=== PATIENT | female | born 1955 | race Caucasian/White ===

== ENCOUNTER → 2021-08-01 14:42 | Outpatient (BNVA) | payer OTHER, SELFPAY | PROVIDERS: PCP Internal Medicine; Visit Provider Hospitalist ==

== ENCOUNTER 2021-08-22 07:45 | Outpatient (REF) | payer OTHER, SELFPAY ==
--- NOTE | 2021-08-22 11:43 | PFT_ITS ---
INDICATION: Status post COVID. SPIROMETRY: FEV1 to FVC of 83% with an FEV1 of 1.98 L, which is 85% predicted, and FVC of 2.37 L, which is 78% predicted. No significant response to bronchodilators noted. Maximum voluntary ventilation initially 70% prior to bronchodilators and then improved to 98% predicted after bronchodilation. LUNG VOLUMES: Total lung capacity 75% predicted with a diffusion capacity of 74% predicted. COMPARISONS: None. INTERPRETATION: No obstructive ventilatory defect. No significant response to bronchodilators noted. There was significant improvement of the maximum voluntary ventilation after bronchodilators were administered. The patient does have a mild restrictive ventilatory defect consistent with mild restrictive lung disease secondary to COVID and also has a mild diffusion impairment. Clinical correlation warranted. MD MARK Underwood/ASHLEY / [phone]
== END 2021-08-22 07:46 | disposition home or self-care (01) ==
LOC: HO.RESP 07:45
PROVIDERS: PCP Internal Medicine; Visit Provider Hospitalist
DX: U09.9 Post COVID-19 condition, unspecified (principal)
CPT/HCPCS: 94060; 94727; 94729

== ENCOUNTER 2021-09-19 14:09 | Outpatient (REF) | payer OTHER, SELFPAY ==
--- NOTE | ~2021-09-19 | XR_ITS ---
EXAMINATION: XR CHEST CLINICAL INFORMATION: Covid 19 COMPARISON: None TECHNIQUE: 2 views of the chest were obtained. FINDINGS: No significant abnormality is noted involving the heart, lungs, mediastinum, bony thorax or soft tissues. XR/XR chest 2V IMPRESSION: Normal chest x-ray.
== END 2021-09-19 14:10 | disposition home or self-care (01) ==
LOC: HO.XRAY 14:09
PROVIDERS: PCP Internal Medicine; Visit Provider Hospitalist
DX: U07.1 COVID-19 (principal)
CPT/HCPCS: 71046

== ENCOUNTER → 2021-10-07 13:58 | Outpatient (BNVA) | payer OTHER, SELFPAY | PROVIDERS: PCP Internal Medicine; Visit Provider Hospitalist | DX: U09.9 Post COVID-19 condition, unspecified (principal); R06.00 Dyspnea, unspecified; R91.1 Solitary pulmonary nodule; I77.819 Aortic ectasia, unspecified site; G47.00 Insomnia, unspecified | CPT/HCPCS: 99212 ==

== ENCOUNTER → 2021-11-25 14:08 | Outpatient (BNVA) | payer OTHER, SELFPAY | PROVIDERS: PCP Internal Medicine; Visit Provider Hospitalist | DX: R06.00 Dyspnea, unspecified (principal); U09.9 Post COVID-19 condition, unspecified; G47.00 Insomnia, unspecified; R91.1 Solitary pulmonary nodule; R00.0 Tachycardia, unspecified; I77.819 Aortic ectasia, unspecified site | CPT/HCPCS: 94010; 94618; 99212 ==

== ENCOUNTER → 2022-02-07 12:55 | Outpatient (BNVA) | payer OTHER, SELFPAY | PROVIDERS: PCP Internal Medicine; Visit Provider Hospitalist | DX: R06.00 Dyspnea, unspecified (principal); U09.9 Post COVID-19 condition, unspecified; G47.00 Insomnia, unspecified; R91.1 Solitary pulmonary nodule; R00.0 Tachycardia, unspecified | CPT/HCPCS: 99212 ==

== ENCOUNTER → 2022-02-28 13:10 | Outpatient (BNVA) | payer OTHER, SELFPAY | PROVIDERS: PCP Internal Medicine; Visit Provider Hospitalist | DX: U09.9 Post COVID-19 condition, unspecified (principal); R06.00 Dyspnea, unspecified; G47.00 Insomnia, unspecified; R91.1 Solitary pulmonary nodule; R00.0 Tachycardia, unspecified; G47.33 Obstructive sleep apnea (adult) (pediatric) | CPT/HCPCS: 99212 ==

== ENCOUNTER → 2022-04-24 14:08 | Outpatient (REF) | payer OTHER, SELFPAY | LOC: HO.SL 14:08 | PROVIDERS: Visit Provider Hospitalist | DX: G47.33 Obstructive sleep apnea (adult) (pediatric) (principal) | CPT/HCPCS: 95806 ==

== ENCOUNTER → 2022-04-29 14:17 | Outpatient (BNVA) | payer OTHER, SELFPAY | PROVIDERS: PCP Internal Medicine; Visit Provider Hospitalist | DX: U09.9 Post COVID-19 condition, unspecified (principal); R06.00 Dyspnea, unspecified; R91.1 Solitary pulmonary nodule | CPT/HCPCS: 99212 ==

== ENCOUNTER → 2022-05-27 11:09 | Outpatient (BNVA) | payer OTHER, SELFPAY | PROVIDERS: PCP Internal Medicine; Visit Provider Hospitalist | DX: R06.00 Dyspnea, unspecified (principal); U09.9 Post COVID-19 condition, unspecified; R91.1 Solitary pulmonary nodule; R00.0 Tachycardia, unspecified; G47.33 Obstructive sleep apnea (adult) (pediatric); G47.00 Insomnia, unspecified | CPT/HCPCS: 99212 ==

== ENCOUNTER → 2022-08-28 14:06 | Outpatient (BNVA) | payer OTHER, SELFPAY | PROVIDERS: PCP Internal Medicine; Visit Provider Hospitalist | DX: J44.9 Chronic obstructive pulmonary disease, unspecified (principal); J40 Bronchitis, not specified as acute or chronic; R06.00 Dyspnea, unspecified; R91.1 Solitary pulmonary nodule; G47.33 Obstructive sleep apnea (adult) (pediatric); U09.9 Post COVID-19 condition, unspecified | CPT/HCPCS: 99212 ==

== ENCOUNTER 2022-09-10 11:01 | Outpatient (REF) | payer OTHER, SELFPAY ==
--- NOTE | ~2022-09-10 | XR_ITS ---
EXAMINATION: XR CHEST CLINICAL INFORMATION: Reason for Exam J40 - Bronchitis, not specified as acute or chronic COMPARISON: Chest radiograph 09/19/2021 TECHNIQUE: 2 views of the chest FINDINGS: Clear lungs. No pneumothorax or pleural effusion. Unchanged cardiomediastinal silhouette. XR/XR chest 2V IMPRESSION: * Clear lungs.
== END 2022-09-10 11:02 | disposition home or self-care (01) ==
LOC: HO.XRAY 11:01
PROVIDERS: PCP Internal Medicine; Visit Provider Hospitalist
DX: J40 Bronchitis, not specified as acute or chronic (principal)
CPT/HCPCS: 71046

== ENCOUNTER → 2023-01-05 15:42 | Outpatient (BNVA) | payer OTHER, SELFPAY | PROVIDERS: PCP Internal Medicine; Visit Provider Hospitalist ==

== ENCOUNTER 2023-01-05 15:45 | Outpatient (AMB) | payer OTHER, SELFPAY ==
--- NOTE | 2023-01-05 15:43 | MHC.OFFVIS ---
Intake Vital Signs 01/05/23 15:45 Height 5 ft 3 in Weight 159 lb 13.362 oz BMI 28.3 BP 128/70 Blood Pressure Location Lt brachial Position Sitting Pulse 79 Pulse Source Pulse Oximeter Pulse Oximetry (%) 97 Oxygen Delivery Method Room Air Intake Visit Reasons: dyspnea Vp Platforms Required: No Allergies No Known Allergies Allergy (Verified 01/05/23 15:47) HPI HPI Comments History of Present Illness Details The patient is a 67-year-old woman who apparently was in usual state health until the end of May when she started developing worsening respiratory symptoms. She did have any fevers or chills. She did test herself for COVID-19 and her test was positive. She was actually surprised by the findings. She was not offered infusion therapy or oral antiviral therapy based on the fact that she had not gotten her booster. However she opted on not getting the therapy because she that she had been sick her for longer than the 10 days. she was initially quarantine at home. However she was not making any progress she was actually getting worse with worsening shortness of breath. Therefore, she was then prescribed a course of prednisone. She was not making any significant improvement so therefore around 3 weeks after her initial diagnosis she underwent a CTA that I personally reviewed a [facility]. 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 However, no evidence of any aneurysmal changes. The patient did mention that she is not adherent to her blood pressure medication. Her blood pressure does run high. I did encourage her to taking medication as prescribed to decrease the risk of further dilation of the ascending aorta. In addition to that there was a hazy pulmonary nodule in the left lung in addition to other more ill-defined nodular densities in the upper lung zones. Also, appears to have some degree of mosaic pattern suggesting the possibility of small airways disease. After the CT scan she had a 2nd course of prednisone and also was given a short-acting beta agonist. She did not feel that the short-acting beta agonist was helpful. During the office visit we did go for brief walking oximetry and she actually maintain a pulse ox of 99% with a heart rate in the 80s to 90s. The patient's is and score is elevated 6/10. The patient is concerned about her post COVID symptoms. I reassured her that symptoms will continue to get better although she will require some patients as she does do that. In the meantime we talked about the importance of getting adequate sleep. The patient does not sleep well. She wakes up many times at nighttime. In addition to that we talked about the importance of pulmonary rehabilitation. 11/26/2021 the patient is here for a pulmonary follow-up visit. The patient continues to have significant dyspnea on exertion fatigue. Since participating in pulmonary rehab she has felt slightly better. She is not having to take as many breaks when she is doing any of her activities of daily living. But, she still has a hard time going up a flight of stairs which she needs to take a break and also has a hard time with even her daily activities. She has been using the Trelegy inhaler and that has been helpful. Today she did have a spirometry demonstrating no obstructive disease. During her 6 minute walk test the patient was ambulated and she maintain a pulse ox of 98% which was reassuring. However, once the heart rate increased to 105 beats per minute she became very dyspneic with if she had to stop with dyspnea score of 6/10. The patient is scheduled to follow-up with rn discharge with going to further address her tachycardia and also assess her for heart disease. This point the patient continues to be very symptomatic due to her post COVID syndrome in still not able to return to work. The patient also had a CT scan of the chest sometime in the beginning of the year 2021 demonstrating pulmonary nodules. She will have a repeat CT scan in June 2022. 08/28/2022 The patient is here for a pulmonary follow up visit. Complaining of a worsening cough and chest tightness. Has been sick for several weeks. Took 5 days of prednisone with minimal response. Already starting to feel better. Has wheezing on examonation. Provided 1 duoneb treatment with improvement. Although, tremolous. Will try xopenex for the home. We will provide her with anebulizer. In the meantime, she also remembers having scant blood in the sputum. We will also treat her for bronchitis. If she is no better after abx course, she should call or further evaluation. 01/05/2023 the patient is here for pulmonary follow-up visit. Overall her breathing is better. She continues use the Trelegy inhaler. The nebulizer has been helpful as well. She is no longer using the individuals she does not find that is helpful and she does not needed at this time. Recently she had an episode of GI bleed and currently being evaluated by GI. She is scheduled to undergo endoscopy and also colonoscopy Very soon. Her hemoglobin has been stable as per the patient. We did review her imaging studies. The patient is scheduled to review have a repeat CT scan in June 2023. Will follow the patient after that study. 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 Pulmonary nodule Social History (Updated 08/01/21 @ 14:54 by JOHN Renee) Household Members: Spouse and Family Patient Tobacco Use Status: Never used Tobacco Second Hand Smoke Exposure: No Review of Systems Const Reports difficulty sleeping, Reports fatigue, Denies fever(s) and Denies frequent falls Eyes Denies change in vision ENT Denies change in voice Card Denies palpitations and Reports dyspnea on exertion Resp Denies change in phlegm color, Denies chest congestion, Reports cough, Denies hemoptysis, Denies pain on inspiration, Denies pain with cough and Reports dyspnea on exertion GI Reports as per HPI and Reports melena Reports no additional complaints Musc Reports no additional complaints Skin/Breast Denies rash Neuro Denies frequent falls and Denies paresthesias Endo Reports fatigue and Denies palpitations Physical Exam Vital Signs: Last Vital Signs Pulse 79 01/05/23 15:45 BP 128/70 01/05/23 15:45 Pulse Ox 97 01/05/23 15:45 Oxygen Delivery Method Room Air 01/05/23 15:45 BMI result Body Mass Index 28.3 Const General: alert Neck Neck: Yes normal visual inspection, Yes full ROM and Yes no lymphadenopathy Chest Chest palpation & inspection: normal inspection of the chest Resp Auscultation: clear to auscultation bilaterally and no wheezes Cardio Rate: tachycardic Rhythm: regular rhythm Heart sounds: S1 normal heart sound present and S2 normal heart sound present GI Palpation (GI): Soft to palpation and nontender Auscultation: normal bowel sounds Skin General skin exam: rashes and/or lesions noted Assessment & Plan Assessment & Plan (1) Dyspnea: Code(s): R06.00 - Dyspnea, unspecified (2) Pulmonary nodule: Code(s): R91.1 - Solitary pulmonary nodule (3) JAMILAH (obstructive sleep apnea): Code(s): G47.33 - Obstructive sleep apnea (adult) (pediatric) (4) COPD (chronic obstructive pulmonary disease): Code(s): J44.9 - Chronic obstructive pulmonary disease, unspecified Plan continue Trelegy continue nebulizer Xopenex as needed Aerobika for CPT continue with pulmonary exercises to continue building of endurance positional therapy to treat her mild sleep apnea stopped Nuvigil Repeat CT chest 06/2023 F/U Jun/Jul 2023 Coding Level of Care Code Est Pt Level 4 (91934) Diagnoses Dyspnea R06.00 Pulmonary nodule R91.1 JAMILAH (obstructive sleep apnea) G47.33 COPD (chronic obstructive pulmonary disease) J44.9 Time Spent (min) 19
[2023-01-05 15:45] VITALS: BP 128/70; PULSE 79; O2SAT 97; BMI 28.3
== END 2023-01-05 15:58 | disposition home or self-care (01) ==
PROVIDERS: PCP Internal Medicine; Visit Provider Hospitalist
DX: R06.00 Dyspnea, unspecified (principal); R91.1 Solitary pulmonary nodule; G47.33 Obstructive sleep apnea (adult) (pediatric); J44.9 Chronic obstructive pulmonary disease, unspecified
CPT/HCPCS: 99214

== ENCOUNTER 2024-01-28 15:00 | Outpatient (AMB) | payer OTHER, SELFPAY ==
--- NOTE | 2024-01-28 15:02 | MHC.OFFVIS ---
Vital Signs 01/28/24 15:03 Height 5 ft 3 in Weight 164 lb BMI 29.0 Pulse 85 Pulse Source Pulse Oximeter Pulse Oximetry (%) 96 Oxygen Delivery Method Room Air Intake Visit Reasons: Dyspnea Medical Biller Coder Required: No Allergies No Known Allergies Allergy (Verified 01/28/24 15:04) HPI Comments Details: The patient is a 68-year-old woman who apparently was in usual state health until the end of May when she started developing worsening respiratory symptoms. She did have any fevers or chills. She did test herself for COVID-19 and her test was positive. She was actually surprised by the findings. She was not offered infusion therapy or oral antiviral therapy based on the fact that she had not gotten her booster. However she opted on not getting the therapy because she that she had been sick her for longer than the 10 days. she was initially quarantine at home. However she was not making any progress she was actually getting worse with worsening shortness of breath. Therefore, she was then prescribed a course of prednisone. She was not making any significant improvement so therefore around 3 weeks after her initial diagnosis she underwent a CTA that I personally reviewed a [facility]. 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 However, no evidence of any aneurysmal changes. The patient did mention that she is not adherent to her blood pressure medication. Her blood pressure does run high. I did encourage her to taking medication as prescribed to decrease the risk of further dilation of the ascending aorta. In addition to that there was a hazy pulmonary nodule in the left lung in addition to other more ill-defined nodular densities in the upper lung zones. Also, appears to have some degree of mosaic pattern suggesting the possibility of small airways disease. After the CT scan she had a 2nd course of prednisone and also was given a short-acting beta agonist. She did not feel that the short-acting beta agonist was helpful. During the office visit we did go for brief walking oximetry and she actually maintain a pulse ox of 99% with a heart rate in the 80s to 90s. The patient's is and score is elevated 6/10. The patient is concerned about her post COVID symptoms. I reassured her that symptoms will continue to get better although she will require some patients as she does do that. In the meantime we talked about the importance of getting adequate sleep. The patient does not sleep well. She wakes up many times at nighttime. In addition to that we talked about the importance of pulmonary rehabilitation. 11/26/2021 the patient is here for a pulmonary follow-up visit. The patient continues to have significant dyspnea on exertion fatigue. Since participating in pulmonary rehab she has felt slightly better. She is not having to take as many breaks when she is doing any of her activities of daily living. But, she still has a hard time going up a flight of stairs which she needs to take a break and also has a hard time with even her daily activities. She has been using the Trelegy inhaler and that has been helpful. Today she did have a spirometry demonstrating no obstructive disease. During her 6 minute walk test the patient was ambulated and she maintain a pulse ox of 98% which was reassuring. However, once the heart rate increased to 105 beats per minute she became very dyspneic with if she had to stop with dyspnea score of 6/10. The patient is scheduled to follow-up with entomology professor with going to further address her tachycardia and also assess her for heart disease. This point the patient continues to be very symptomatic due to her post COVID syndrome in still not able to return to work. The patient also had a CT scan of the chest sometime in the beginning of the year 2021 demonstrating pulmonary nodules. She will have a repeat CT scan in June 2022. 08/28/2022 The patient is here for a pulmonary follow up visit. Complaining of a worsening cough and chest tightness. Has been sick for several weeks. Took 5 days of prednisone with minimal response. Already starting to feel better. Has wheezing on examonation. Provided 1 duoneb treatment with improvement. Although, tremolous. Will try xopenex for the home. We will provide her with anebulizer. In the meantime, she also remembers having scant blood in the sputum. We will also treat her for bronchitis. If she is no better after abx course, she should call or further evaluation. 01/05/2023 the patient is here for pulmonary follow-up visit. Overall her breathing is better. She continues use the Trelegy inhaler. The nebulizer has been helpful as well. She is no longer using the individuals she does not find that is helpful and she does not needed at this time. Recently she had an episode of GI bleed and currently being evaluated by GI. She is scheduled to undergo endoscopy and also colonoscopy Very soon. Her hemoglobin has been stable as per the patient. We did review her imaging studies. The patient is scheduled to review have a repeat CT scan in June 2023. Will follow the patient after that study. 01/28/2024 the patient is here for a pulmonary follow-up visit. Overall the patient has been complaining of increasing dyspnea on exertion. She also describes chest pressure on the left side. She has been very stressed. She does have 2 jobs and she is trying to pay the situation for her adopted son that is currently going to college and is extremely expensive. She tries to keep up with her expenses and [place] keep up a very busy schedule. The patient does not complain of any wheezing or chest tightness or coughing. She just complains of the dyspnea and the pressure sensation the left side. 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 We did go for brief walking oximetry the patient did well though the heart rate was slightly elevated. Oxygen levels were okay. She is using her rescue inhaler as needed. It is not very effective. I will switch over to Symbicort in order to get more maximum effect to try to open up her airways further. Antelmo I also will give her EKG or that she can get a [facility]. The patient should have follow-up with cardiology and should have some type of cardiac stress test if she has not had 1 recently. She did have a CT scan of the chest that we personally reviewed. Pulmonary nodules appeared to be completely stable. Lung parenchyma also appears to be stable. Will plan to repeat the CT scan in a year's time. Will follow-up in 6 months or sooner if she develops any issues. 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 COVID-19 Social History (Updated 08/01/21 @ 14:54 by JOHN Renee) Household Members: Spouse and Family Patient Tobacco Use Status: Never used Tobacco Second Hand Smoke Exposure: No Review of Systems Const Reports difficulty sleeping, Reports fatigue, Denies fever(s) and Denies frequent falls Eyes Denies change in vision ENT Denies change in voice Card Denies palpitations and Reports dyspnea on exertion Resp Denies change in phlegm color, Denies chest congestion, Reports cough, Denies hemoptysis, Denies pain on inspiration, Denies pain with cough and Reports dyspnea on exertion GI Reports no additional complaints Reports no additional complaints Musc Reports no additional complaints Skin/Breast Denies rash Neuro Denies frequent falls and Denies paresthesias Endo Reports fatigue and Denies palpitations Physical Exam Vital Signs: Last Vital Signs Pulse 85 01/28/24 15:03 Pulse Ox 96 01/28/24 15:03 Oxygen Delivery Method Room Air 01/28/24 15:03 BMI result Body Mass Index 29.0 Const General: alert Neck Neck: Yes normal visual inspection, Yes full ROM and Yes no lymphadenopathy Chest Chest palpation & inspection: normal inspection of the chest Resp Auscultation: no wheezes and diminished lung sounds Cardio Rate: tachycardic Rhythm: regular rhythm Heart sounds: S1 normal heart sound present and S2 normal heart sound present GI Palpation (GI): Soft to palpation and nontender Auscultation: normal bowel sounds Skin General skin exam: rashes and/or lesions noted Assessment & Plan Assessment & Plan (1) Dyspnea: Code(s): R06.00 - Dyspnea, unspecified Category: Medical Qualifiers: Dyspnea type: dyspnea on exertion Qualified Code(s): R06.09 - Other forms of dyspnea (2) Pulmonary nodule: Code(s): R91.1 - Solitary pulmonary nodule Category: Medical (3) JAMILAH (obstructive sleep apnea): Code(s): G47.33 - Obstructive sleep apnea (adult) (pediatric) Category: Medical (4) COPD (chronic obstructive pulmonary disease): Code(s): J44.9 - Chronic obstructive pulmonary disease, unspecified Category: Medical Qualifiers: COPD type: chronic bronchitis Chronic bronchitis type: simple Qualified Code(s): J41.0 - Simple chronic bronchitis Plan stop Trelegy start Symbicort continue nebulizer Xopenex as needed Aerobika for CPT EKG will likely benefit from a cardiac stress test positional therapy to treat her mild sleep apnea F/U 4-6 months Orders: Orders ECG 12 lead EKG Today J44.9 - Chronic obstructive pulmonary disease, unspecified Medications: New budesonide-formoterol 160-4.5 mcg/actuation 2 puffs inhalation BID 10.2 grams 11RF 30 days J44.89 - Other specified chronic obstructive pulmonary disease Coding Level of Care Code Est Pt Level 4 (53229) Diagnoses Dyspnea on exertion R06.09 Dyspnea type: dyspnea on exertion Pulmonary nodule R91.1 JAMILAH (obstructive sleep apnea) G47.33 Simple chronic bronchitis J41.0 COPD type: chronic bronchitis Chronic bronchitis type: simple Time Spent (min) 17
[2024-01-28 15:03] VITALS: PULSE 85; O2SAT 96; BMI 29.0
== END 2024-01-28 16:26 | disposition home or self-care (01) ==
PROVIDERS: PCP Internal Medicine; Visit Provider Hospitalist
DX: R06.09 Other forms of dyspnea (principal); R91.1 Solitary pulmonary nodule; G47.33 Obstructive sleep apnea (adult) (pediatric); J41.0 Simple chronic bronchitis
CPT/HCPCS: 99214

== ENCOUNTER → 2024-01-28 15:00 | Outpatient (BNVA) | payer OTHER, SELFPAY | PROVIDERS: PCP Internal Medicine; Visit Provider Hospitalist ==